=== PATIENT | female | born 1970 | race Caucasian/White ===

== ENCOUNTER → 2019-01-26 | Outpatient (CLI) | payer OTHER ==
--- NOTE | 2019-01-26 15:27 | US ---
EXAMINATION TYPE: US kidneys/renal and bladder DATE OF EXAM: 01/26/2019 COMPARISON: NONE CLINICAL HISTORY: R31.9 hematuria. Microscopic hematuria. EXAM MEASUREMENTS: Right Kidney: 11.9 x 6.1 x 5.4 cm Left Kidney: 10.9 x 4.8 x 5.3 cm Very limited exam due to patient body habitus Right Kidney: Two echogenic focus seen, upper pole= 9 mm and lower pole = 6 mm Left Kidney: No prominent hydronephrosis or masses seen Bladder: distended, anechoic Right Jet seen There is no evidence for hydronephrosis at this point in time. No masses are identified. The urinar y bladder is anechoic. Bilateral ureteral jets are not seen. IMPRESSION: Very limited exam due to patient body habitus. No gross evidence of hydronephrosis of either kidney. 2 nonobstructing right renal calculi are seen measuring up to 9 mm.
== END | disposition home or self-care (01) ==
LOC: RADUSWWP 14:49
PROVIDERS: ATTEND Family Medicine
DX: N20.0 Calculus of kidney (principal)
CPT/HCPCS: 76770